=== PATIENT | male | born 1995 | race African-American/Black ===

== ENCOUNTER 2021-11-24 05:05 | Emergency (ER) | payer SELFPAY ==
[~2021-11-24] VITALS: Ht 185.4 cm; Wt 77.3 kg
[2021-11-24 05:33] VITALS: BP 156/93
== END 2021-11-24 08:59 | disposition home or self-care (01) ==
LOC: EDBD 05:05 → EMS 05:05
DX: F25.9 Schizoaffective disorder, unspecified (principal); F17.200 Nicotine dependence, unspecified, uncomplicated; Z59.00 Homelessness unspecified
CPT/HCPCS: 99283